=== PATIENT | female | born 1940 | race Caucasian/White ===

== ENCOUNTER 2018-01-03 09:05 | Observation (INO) | payer MEDICARE, OTHER ==
[~2018-01-03] VITALS: Ht 162.6 cm; Wt 73.6 kg
[~2018-01-03 09:05] MED LIST: BACITRACIN 50,000 UNIT ONE; BUPIVACAINE 0.25% ONE; BUPIVACAINE/PF 0.5% ONE; EPINEPHRINE 1 MG/ML, 1ML ONE; THROMBIN 5,000 UNIT VIAL TP ONE
[2018-01-03 09:40] VITALS: BP 184/100
[2018-01-03] MEDS ORDERED: LACTATED RINGERS 1,000 ML IV SCH (09:44)
[2018-01-03] MEDS ORDERED: ATOR-2 PO (09:49)
[2018-01-03] MEDS ORDERED: MULTIVITAMIN PO (09:49)
[2018-01-03] MEDS ORDERED: POTASSIUM PO (09:49)
[2018-01-03] MEDS ORDERED: VALS1TAB28 PO (09:49)
[2018-01-03] MEDS ORDERED: ASPI-496 PO (09:49)
[2018-01-03] MEDS ORDERED: METOPROLOL PO (09:49)
[2018-01-03] MEDS ORDERED: GABAPENTIN 300 MG CAPSULE PO ONE (10:00)
[2018-01-03] MEDS ORDERED: OxyconTIN ER 10 MG TAB.ER PO ONE (10:00)
[2018-01-03] MEDS ORDERED: ACETAMINOPHEN 500 MG TABLET PO ONE (10:00)
[2018-01-03] MEDS ORDERED: FAMOTIDINE 20 MG TABLET PO ONE (10:00)
[2018-01-03] MEDS ORDERED: ONDANSETRON ODT 4 MG PO ONE (10:00)
[2018-01-03] MEDS ORDERED: LORazepam 1MG TABLET PO ONE (10:30)
[2018-01-03] MEDS ORDERED: MIDAZOLAM 1 MG/ML, 2ML ONE (10:57)
[2018-01-03] MEDS ORDERED: FENTANYL PF 100 MCG/2ML ONE ×2 (10:57→13:04)
[2018-01-03] MEDS ORDERED: PROPOFOL 10 MG/ML, 20ML ONE (10:58)
[2018-01-03] MEDS ORDERED: LIDOCAINE-MPF 2% ,5ML ONE (10:58)
[2018-01-03] MEDS ORDERED: CEFAZOLIN 1,000 MG ONE ×2 (10:59)
[2018-01-03] MEDS ORDERED: PHENYLEPHRINE 10 MG/ML ONE (10:59)
[2018-01-03] MEDS ORDERED: WATER-INJECTION,STERILE 10 ML IV ONE (11:00)
[2018-01-03] MEDS ORDERED: ROCURONIUM 10MG/ML,5ML ONE (11:01)
[2018-01-03] MEDS ORDERED: LIDOCAINE-MPF 1%, 2ML ONE (12:00)
[2018-01-03] MEDS ORDERED: hydrALAzine 20 MG/ML, 1ML ONE (12:17)
[2018-01-03] MEDS ORDERED: EPHEDRINE 50 MG/ML, 1ML ONE (12:17)
[2018-01-03] MEDS ORDERED: DEXAMETHASONE 4 MG/ML, 1ML ONE ×2 (12:29)
[2018-01-03] MEDS ORDERED: BUPIVACAINE/PF 0.5% INFIL ONE ×2 (12:53→12:54)
[2018-01-03] MEDS ORDERED: morphine SULFATE 10 MG/ML, 1ML IV PRN (13:00)
[2018-01-03] MEDS ORDERED: FENTANYL PF 100 MCG/2ML IV PRN (13:00)
[2018-01-03] MEDS ORDERED: hydrALAzine 20 MG/ML, 1ML IV PRN (13:00)
[2018-01-03] MEDS ORDERED: METOCLOPRAMIDE 5 MG/ML, 2ML IV PRN (13:00)
[2018-01-03] MEDS ORDERED: MEPERIDINE/PF 25MG/0.5ML IVPush PRN (13:00)
[2018-01-03] MEDS ORDERED: LABETALOL 5MG/ML, 20ML IV PRN (13:00)
[2018-01-03] MEDS ORDERED: OXYcodone 5 MG/5 ML ORAL.SOL UDC PO PRN (13:00)
[2018-01-03] MEDS ORDERED: PROMETHAZINE 25 MG/ML, 1ML IV PRN (13:00)
[2018-01-03] MEDS ORDERED: BUPIVACAINE/PF 0.25% EPIDPUSH ONE (13:01)
[2018-01-03] MEDS ORDERED: FENTANYL PF 100 MCG/2ML EPIDPUSH ONE (13:02)
[2018-01-03] MEDS ORDERED: BUPIVACAINE LIPOSOME/PF INFIL ONE ×2 (13:10→13:49)
[2018-01-03] MEDS ORDERED: morphine SULFATE 10 MG/ML, 1ML IVPush PRN (14:00)
[2018-01-03] MEDS: CEFAZOLIN PMX 1GM/50ML 50 ML IVPB SCH ×2 (14:00→21:09)
[2018-01-03] MEDS ORDERED: OXYcodone/APAP 5/325MG TABLET PO PRN (14:00)
[2018-01-03] MEDS ORDERED: DIPHENHYDRAMINE 50 MG/ML, 1ML IVPush PRN (14:00)
[2018-01-03] MEDS ORDERED: PHARMACY MAY ADJ FOR RENAL FX MC PRN (14:00)
[2018-01-03] MEDS ORDERED: CYCLOBENZAPRINE 10 MG TABLET PO PRN (14:00)
[2018-01-03] MEDS ORDERED: LABETALOL 5MG/ML, 20ML IVPush PRN (14:00)
[2018-01-03] MEDS ORDERED: PROMETHAZINE 25 MG/ML, 1ML IM PRN (14:00)
[2018-01-03] MEDS ORDERED: HYDROcodone/APAP 10/325 MG TABLET PO PRN (14:00)
[2018-01-03 20:10] VITALS: BP 152/87
[2018-01-03] MEDS ORDERED: ATORVASTATIN 80 MG TABLET PO SCH (21:00)
[2018-01-03] MEDS: SODIUM CHLORIDE FLUSH 10ML SYR IVF SCH (21:00)
[2018-01-03] MEDS: HYDROcodone/APAP 5/325 TABLET PO PRN (21:01)
[2018-01-03] MEDS ORDERED: ONDANSETRON ODT 4 MG PO PRN (23:00)
[2018-01-03] MEDS: D5%-0.9% NACL+KCL 20MEQ 1,000 ML IV SCH (23:02)
[2018-01-04 01:57] VITALS: BP 147/78
[2018-01-04] MEDS: HYDROcodone/APAP 5/325 TABLET PO PRN ×2 (05:12→13:17)
[2018-01-04 07:47] VITALS: BP 171/79
[2018-01-04] MEDS: SODIUM CHLORIDE FLUSH 10ML SYR IVF SCH (08:48)
[2018-01-04] MEDS ORDERED: HYDROCHLOROTHIAZIDE 12.5 MG CAPSULE PO SCH (09:00)
[2018-01-04] MEDS ORDERED: VALSARTAN 320 MG TABLET PO SCH (09:00)
[2018-01-04] MEDS: D5%-0.9% NACL+KCL 20MEQ 1,000 ML IV SCH (10:00)
[2018-01-04 10:48] VITALS: BP 147/77
== END 2018-01-04 13:30 | disposition home or self-care (01) ==
LOC: OUT 09:05 → ORIP 13:43 → 4NOR 18:37 → DCLOUNGE 01-04 13:19
PROVIDERS: ADMIT Neurological Surgery; ATTEND Neurological Surgery
DX: M54.16 Radiculopathy, lumbar region (principal); M48.062 Spinal stenosis, lumbar region with neurogenic claudication; M43.16 Spondylolisthesis, lumbar region
CPT/HCPCS: 63047; 72100; 96365; 96375; C9290; G0378; J0171; J0360; J0690; J1100; J2250; J2370; J2704; J3010; J3480; J3490; Q0162